=== PATIENT | male | born 1965 | race Caucasian/White ===

== ENCOUNTER 2017-02-19 19:55 | Emergency (ER) | payer OTHER | END 2017-02-19 20:56 | disposition home or self-care (01) | LOC: ER1 19:55 | DX: S80.811A Abrasion, right lower leg, initial encounter (principal); L03.116 Cellulitis of left lower limb; L03.115 Cellulitis of right lower limb; E11.9 Type 2 diabetes mellitus without complications; I10 Essential (primary) hypertension; W22.8XXA Striking against or struck by other objects, initial encounter | CPT/HCPCS: 99283 ==

== ENCOUNTER → 2020-12-16 | Outpatient (CLI) | payer BC, OTHER ==
[~2020-12-16] MED LIST: BREO ELLIPTA 11 EACH INH; CYCLOBENZAPRINE5 MG PO; ELIQUIS5 MG PO; FOLIC ACID 1 MG1 MG PO; GLUCOPHAGE1000 MG PO; LISINOPRIL-HCT1 EAC2 PO; METHOTREXATE2.5 MG PO; PERCOCET 10-321 EACH PO; SINGULAIR10 MG PO; TOPROL XL25 MG PO
== END ==
LOC: HEART 5 10:03
DX: J45.30 Mild persistent asthma, uncomplicated (principal); R91.8 Other nonspecific abnormal finding of lung field; R94.2 Abnormal results of pulmonary function studies
CPT/HCPCS: 71046; 94060; 95012

== ENCOUNTER → 2020-12-30 | Outpatient (CLI) | payer BC | LOC: KOH-I 12-27 13:00 | DX: R91.8 Other nonspecific abnormal finding of lung field (principal) | CPT/HCPCS: 71250 ==

== ENCOUNTER → 2021-02-13 | Outpatient (CLI) | payer BC | LOC: HEART 5 14:07 | DX: R09.02 Hypoxemia (principal) | CPT/HCPCS: 94618 ==

== ENCOUNTER → 2021-03-06 | Outpatient (CLI) | payer BC | LOC: EXRD 08:49 | DX: Z00.00 Encounter for general adult medical examination without abnormal findings (principal); J90 Pleural effusion, not elsewhere classified | CPT/HCPCS: 71046 ==

== ENCOUNTER 2021-07-25 16:55 | Emergency (ER) | payer BC ==
[2021-07-25 18:28] LABS: RED BLOOD COUNT 5.73 M/UL (4.20-5.50); WHITE BLOOD COUNT 8.5 K/UL (4.5-11.0)
[2021-07-25 18:41] LABS: BUN/CREATININE RATIO 15 (0-10)
== END 2021-07-25 20:37 | disposition home or self-care (01) ==
LOC: ER1 16:55
PROVIDERS: Physician Assistant
DX: R10.811 Right upper quadrant abdominal tenderness (principal)
CPT/HCPCS: 71045; 80053; 81001; 83690; 85025; 99284; Q9967

== ENCOUNTER → 2022-05-25 | Day surgery (SDC) | payer BC ==
[~2022-05-25] MED LIST changes: +ASPIRIN81 MG PO; +DEPO-TESTO200 MG/1 M IM; +ENBREL50 MG/1 ML SQ; +GABAPENTIN600 MG PO; +LEVOTHYROXINE75 MCG PO; +OFEV150 MG PO; +PHOSPHA 250 NE250 MG PO; +PROTONIX 40 MG40 MG PO; +VISTARIL50 MG PO; +VITAMIN D21250 MCG PO; +ZESTRIL/PRINIVI10 MG PO; +ZOLOFT100 MG PO
== END | disposition home or self-care (01) ==
LOC: OR 07:30
DX: Z12.11 Encounter for screening for malignant neoplasm of colon (principal); K64.1 Second degree hemorrhoids; I10 Essential (primary) hypertension; K21.9 Gastro-esophageal reflux disease without esophagitis; M19.90 Unspecified osteoarthritis, unspecified site; E11.9 Type 2 diabetes mellitus without complications; J84.112 Idiopathic pulmonary fibrosis; J96.11 Chronic respiratory failure with hypoxia; E66.3 Overweight; Z79.82 Long term (current) use of aspirin; Z79.84 Long term (current) use of oral hypoglycemic drugs; Z79.899 Other long term (current) drug therapy; Z68.29 Body mass index [BMI] 29.0-29.9, adult
CPT/HCPCS: 82962; J2704; J7040